=== PATIENT | female | born 1985 | race Caucasian/White ===

== ENCOUNTER 2017-09-04 09:53 | Emergency (ER) | payer MEDICAID ==
[~2017-09-04] VITALS: Ht 160 cm; Wt 49.6 kg
[2017-09-04 10:02] VITALS: BP 92/54
--- NOTE | 2017-09-04 10:11 | NUR ---
REPORT GIVEN TO DEEPAK SOTELO
--- NOTE | 2017-09-04 10:11 | NUR ---
PT AMBULATED TO BED 12
--- NOTE | 2017-09-04 10:11 | NUR ---
32 YO F TO ER W/C/O EPIGASTRIC PAIN X3DAY WITH INCREASE IN PAIN TODAY. PT STATES PELVIC CRAMPING. 9/10 PAIN. PT DENIES N/V/D, CP OR SOB. PT AAOX4. GCS 15. CMS INTACT. RR EVEN AND UNLABORED. LUNGS CLEAR. ABD SOFT, NON-TENDER. ER MD NOTIFIED. PT NEEDS MET. SAFETY PRECAUTIONS IN PLACE. WILL CONTINUE TO MONITOR.
[2017-09-04] MEDS ORDERED: FAMOTIDINE 20 MG TAB PO ONE (10:30)
[2017-09-04] MEDS ORDERED: KETOROLAC 60 MG/2 ML VIAL IM ONE (10:30)
[2017-09-04 10:54] LABS: BASOPHILS # (AUTO) 0.1 K/uL (0.00-0.22); BASOPHILS % (AUTO) 1.1 % (0.0-2.0); EOSINOPHILS # (AUTO) 0.1 K/uL (0-0.4); EOSINOPHILS % (AUTO) 2.7 % (0.0-4.0); HEMOGLOBIN 12.1 g/dL (12.0-16.0); LYMPHOCYTES # (AUTO) 1.8 K/uL (2.5-16.5); MEAN CORPUSCULAR HEMOGLOBIN 31 pg (27-31); MEAN CORPUSCULAR HGB CONC 33 g/dL (33-37); MEAN CORPUSCULAR VOLUME 93.8 fL (80-94); MONOCYTES # (AUTO) 0.6 K/uL (0.8-1.0); NEUTROPHILS # (AUTO) 2.8 K/uL (1.8-7.7); NEUTROPHILS % (AUTO) 52.2 % (42.2-75.2); PLATELET COUNT (AUTO) 266 K/uL (140-450); RED BLOOD CELL COUNT(AUTO) 3.94 MIL/uL (4.20-5.40); RED CELL DISTRIBUTION WIDTH 14.1 % (11.6-13.7); WHITE BLOOD COUNT (AUTO) 5.4 K/uL (4.8-10.8)
[2017-09-04 11:11] LABS: ANION GAP 12.1 (8-16); CARBON DIOXIDE 26.9 mmol/L (21-32); CREATININE 0.7 mg/dL (0.6-1.3)
[2017-09-04 11:17] LABS: ALBUMIN 3.6 g/dL (3.4-5.0); TOTAL BILIRUBIN 0.3 mg/dL (0.0-1.0)
--- NOTE | 2017-09-04 12:22 | NUR ---
Lele wilson in [facility], [place] - 09/04/17 at 1226 by [email or web address] Patient being reevaluated by DR LAKE at bedside.
[2017-09-04 12:25] VITALS: BP 92/54
== END 2017-09-04 12:26 | disposition home or self-care (01) ==
LOC: MED 09:53
DX: K29.70 Gastritis, unspecified, without bleeding (principal)
CPT/HCPCS: 36415; 76705; 80053; 81002; 81025; 83690; 85025; 96372; 99285; J1885; Q0092

== ENCOUNTER 2017-10-26 09:49 | Emergency (ER) | payer MEDICAID ==
[~2017-10-26] VITALS: Ht 149.9 cm; Wt 45.4 kg
[2017-10-26 10:01] VITALS: BP 121/80
--- NOTE | 2017-10-26 10:05 | NUR ---
PT AMBULATES TO BED 11
--- NOTE | 2017-10-26 10:10 | NUR ---
32Y/F BIB C/O RIGHT EAR PAIN WITH SOME DRAINAGE X YESTERDAY; PT DENIES INJURY; BED DOWN; BEDRAIL UP X 1; ER MD AWARE AND NOTIFIED OF PT STATUS. HX---DENIES RX---NONE
[2017-10-26] MEDS ORDERED: KETOROLAC 60 MG/2 ML VIAL IM ONE (10:25)
[2017-10-26] MEDS ORDERED: cefTRIAXone 1,000 MG in LIDOCAINE 1% ***ER ONLY *** 2.1 ML IM ONE (10:25)
--- NOTE | 2017-10-26 10:26 | NUR ---
Patient being evaluated by physician at bedside.
[2017-10-26 11:05] VITALS: BP 120/79
--- NOTE | 2017-10-26 11:05 | NUR ---
Patient discharged with v/s stable. Written and verbal after care instructions given and explained. Patient alert, oriented and verbalized understanding of instructions. Ambulatory with steady gait. All questions addressed prior to discharge. ID band removed. Patient advised to follow up with PMD. Rx of motrin, cortisporin, azithromycin given. Patient educated on indication of medication including possible reaction and side effects. Opportunity to ask questions provided and answered.
== END 2017-10-26 11:05 | disposition home or self-care (01) ==
LOC: MED 09:49
DX: H65.91 Unspecified nonsuppurative otitis media, right ear (principal); H73.011 Bullous myringitis, right ear
CPT/HCPCS: 96372; 99284; J0696; J1885; J2001

== ENCOUNTER 2018-10-27 13:45 | Emergency (ER) | payer MEDICAID ==
[~2018-10-27] VITALS: Ht 153.7 cm; Wt 52.2 kg
[2018-10-27 14:01] VITALS: BP 131/79
[2018-10-27] MEDS ORDERED: KETOROLAC 60 MG/2 ML VIAL IM ONE (14:15)
[2018-10-27] MEDS ORDERED: PENICILLIN G BENZATHINE L-A 1.2 MU/2 ML SYR IM ONE (16:15)
[2018-10-27 16:36] VITALS: BP 102/55
== END 2018-10-27 16:36 | disposition home or self-care (01) ==
LOC: MED 13:45
DX: J02.0 Streptococcal pharyngitis (principal); N39.0 Urinary tract infection, site not specified; F17.210 Nicotine dependence, cigarettes, uncomplicated; Z98.890 Other specified postprocedural states
CPT/HCPCS: 81002; 81025; 96372; 99283; J0561; J1885